=== PATIENT | male | born 1975 | race Caucasian/White ===

== ENCOUNTER 2021-06-11 15:58 | Emergency (ER) | payer OTHER ==
--- OUTSIDE RECORDS SUMMARY | 2021-06-11 16:01 | XMS REPORT | Continuity of Care Document ---
:1975 Author Organization [facility] t Address [address] [place] [address] Care Team Providers Name Role Phone Doctor Unassigned, Name Attending Clinician Unavailable Brandan De Dios MD Attending Clinician Renetta Fowler Attending Clinician Renetta Fowler Admitting Clinician Problems Condition Condition Condition Status Onset Resolution Last Treating Co mments Source Name Details Category Date Date Treatment Clinician Date CHEST PAIN Diagnosis Active 2017-03-22 Memoria 5-21 22:08:00 l CHEST 00:00: Ray PAIN 00 Active 03/13/2017 [facility] Ray Cardiomega Problem Resolve 2017-03-17 Memoria ly d 02:39:09 l (disorder) Thomas n Cardiomega ly (disorder) Resolved Problem 03/17/2017 [facility] Hypertensi Problem Resolve 2017-03-17 Memoria ve d 02:39:09 l disorder, Benedict systemic Hypertensi arterial ve (disorder) disorder, systemic arterial (disorder) Resolved Problem 03/17/2017 [facility] Arthritis Problem Resolve 2017-03-17 M emoria (disorder) d 02:39:09 l Ray Arthritis (disorder) Resolved Problem 03/17/2017 [facility] CHEST Diagnosis Active 2017-03-22 Mem oria PAIN, 22:08:00 l UNSPECIFIE CHEST Nereida nn D PAIN, UNSPECIFIE D Active [facility] Allergies, Adverse Reactions, Alerts This patient has no known allergies or adverse reactions. Social History Social Habit Start Date Stop Date Quantity Comments Source Social History 2017-03-14 2017-03-14 [facility] 02:36:21 02:36:21 Medications Ordered Filled Start Stop Current Ordering Indication Dosage Frequency Signature Comments Components Source Medication Medication Date Date Medication? Clinician (SIG) Name Name Amlodipine No Notes: Memor ia 03-15 (Same as: l 14:00: Norvasc) Benedict GI cocktail No Notes: Nicolas prateek - G.I. l 19:07: Cocktail = antacid with simethicon e 22.5 mL - lidocaine viscous 7.5 mL Saline No Notes: Memoria Flush 0.9% - (Same as: l 14:00: BD Benedict 00 Posiflush) aspirin 81 No Notes: Do Me moria mg tablet, 03-14 not crush l enteric 14:00: or chew. Thomas n coated 00 (Same As: Ecotrin) Norvasc No Notes: Memoria 03-14 (Same as: l 14:00: Norvasc) Ray 00 Amlodipine Yes 10 mg, PO, M emoria - Daily, 0 l 02:30: Refill(s) potassium No Notes: Memori a chloride - (Same as: l 02:08: K-Dur 20) "Do Not Crush" With food and full glass of water Saline No Notes: Memoria Flush 0.9% - (Same as: l 02:01: BD Benedict 00 Posiflush) Nitroglycer No Notes: Nicolas prateek in 03-14 (Same l 02:01: as:Nitroqu ick, Nitrostat) "Do Not Crush" Sublingual tablet Ondansetron No Notes: Nicolas prateek - (Same as: l 02:01: Zofran) MEDICATION WASTE Product Size: 4 mg Product Wasted: ___ mg Morphine No Notes: Memoria 5-22 (Same l 01:45: as:MORPhin Ray 00 e Sulfate) Acetaminoph No Notes: Nicolas prateek en 325 MG / - (Same as: l Hydrocodone 01:44: [place] Nereida nn Bitartrate 00 325/5) Do 5 MG Oral not exceed Tablet 4gm/day of [[place] acetaminop 5/325] hen. Acetaminoph No Notes: Do M emoria en 03-14 not exceed l 01:44: 4 gm/day. Ray 00 (Same as: Tylenol) Vital Signs Vital Name Observation Time Observation Value Comments Source Temperature Oral (F) 2017-03-14 17:10:00 98.6 F [facility] Systolic (mm Hg) 2017-03-14 17:10:00 Nicolas rial Benedict Diastolic (mm Hg) 2017-03-14 17:10:00 Mem orial Benedict Respitory Rate 2017-03-14 17:10:00 Memori al Ray Heart Rate 2017-03-14 17:10:00 [facility] Ray Respitory Rate 2017-03-14 13:43:00 Memori al Ray Systolic (mm Hg) 2017-03-14 13:43:00 Nicolas rial Ray Diastolic (mm Hg) 2017-03-14 13:43:00 Mem orial Benedict Temperature Oral (F) 2017-03-14 13:43:00 98 F [facility] Heart Rate 2017-03-14 13:43:00 [facility] Respitory Rate 2017-03-14 09:20:00 Memori al Rya Heart Rate 2017-03-14 09:20:00 [facility] Ray Systolic (mm Hg) 2017-03-14 09:20:00 Nicolas rial Ray Diastolic (mm Hg) 2017-03-14 09:20:00 Mem orial Benedict Temperature Oral (F) 2017-03-14 09:20:00 97.9 F [facility] BMI Calculated 2017-03-14 02:28:00 Memori al Ray Weight 2017-03-14 02:28:00 [facility] Height 2017-03-14 02:28:00 190.5 cm [facility] Weight 2017-03-14 02:17:00 [facility] BMI Calculated 2017-03-14 02:17:00 Memori al Ray Height 2017-03-14 02:17:00 190.5 cm [facility] Procedures This patient has no known procedures. Encounters Start End Encounter Admission Attending Care Care Encounter Source Date/Time Date/Time Type Type Clinicians Facility Department ID 2021-01-31 2021-01-31 Orders Doctor MARGY [id number] 00:00:00 00:00:00 Only Unassigned, [place] [id number] [place] [facility] [id number] 2021-01-29 2021-01-29 Telephone [facility] [id number] 00:00:00 00:00:00 [facility] [id number] Brandan [place] [id number] Professio [id number] nal [address] 2017-03-14 2017-03-14 [id number] Memoria 01:46:00 20:00:00 n zuri Bell 41 l [facility] 2017-03-13 2017-03-14 Outpatient Ajao, [facility] [address] [id number] 20:46:00 15:00:00 Yanique 41 Renetta Results Test Description Test Time Test Comments Results Result Comments Source CARDIAC ENZYMES 2017-03-14 <0.02 [facility] Ray 17:13:00 HEMATOLOGY 2017-03-14 0.27 [facility] Nereida nn 17:13:00 CARDIAC ENZYMES 2017-03-14 0.6 [facility] 06:58:00 CARDIAC ENZYMES 2017-03-14 1.1 [facility] 06:58:00 CARDIAC ENZYMES 2017-03-14 170 [facility] Ray 06:58:00 CARDIAC ENZYMES 2017-03-14 <0.02 [facility] Ray 06:58:00 CARDIAC ENZYMES 2017-03-14 1.4 [facility] Benedict 02:48:00 CARDIAC ENZYMES 2017-03-14 0.7 [facility] Ray 02:48:00 CARDIAC ENZYMES 2017-03-14 199 [facility] Ray 02:48:00 CARDIAC ENZYMES 2017-03-14 <0.02 [facility] Ray 02:48:00 CHEM PANEL 2017-03-14 94 [facility] Nereida nn 02:48:00 CHEM PANEL 2017-03-14 2.9 [facility] Nereida nn 02:48:00 CHEM PANEL 2017-03-14 1.4 [facility] Nereida nn 02:48:00 CHEM PANEL 2017-03-14 0.99 [facility] Nereida nn 02:48:00 CHEM PANEL 2017-03-14 88 [facility] Nereida nn 02:48:00 CHEM PANEL 2017-03-14 15 [facility] Nereida nn 02:48:00 CHEM PANEL 2017-03-14 81 [facility] Nereida nn 02:48:00 CHEM PANEL 2017-03-14 4.2 [facility] Nereida nn 02:48:00 CHEM PANEL 2017-03-14 87 [facility] Nereida nn 02:48:00 CHEM PANEL 2017-03-14 26 [facility] Nereida nn 02:48:00 CHEM PANEL 2017-03-14 8.7 [facility] Nereida nn 02:48:00 CHEM PANEL 2017-03-14 143 [facility] Nereida nn 02:48:00 CHEM PANEL 2017-03-14 3.7 [facility] Nereida nn 02:48:00 CHEM PANEL 2017-03-14 15 [facility] Nereida nn 02:48:00 CHEM PANEL 2017-03-14 7.1 [facility] Nereida nn 02:48:00 CHEM PANEL 2017-03-14 39 [facility] Nereida nn 02:48:00 CHEM PANEL 2017-03-14 0.6 [facility] Nereida nn 02:48:00 CHEM PANEL 2017-03-14 107 [facility] Nereida nn 02:48:00 CHEM PANEL 2017-03-14 13.7 [facility] Nereida nn 02:48:00
--- NOTE | 2021-06-11 17:03 | RAD REPORT ---
EXAM DESCRIPTION: RAD - Shoulder Left 2 View - 06/11/2021 4:54 pm CLINICAL HISTORY: fall Fall, trauma, pain FINDINGS: Mild AC joint and glenohumeral joint arthritic changes are present. No acute fracture or d islocation.
--- NOTE | 2021-06-11 17:36 | EDPHYS ---
Physician Documentation [facility] Name: Enmanuel Valenzuela Age: 45 yrs Sex: Male : 1975 Arrival Date: 06/11/2021 Time: 16:03 Bed DX2 Private MD: ED Physician Aris Villalta HPI: 06/11 16:19 This 45 yrs old Male presents to ER via Ambulatory with complaints of Fall jmm Injury, Shoulder Injury. 16:19 Details of fall: The patient fell from an upright position, while walking. Onset: The jmm symptoms/episode began/occurred acutely, just prior to arrival. Associated injuries: The patient sustained left shoulder. The patient has experienced similar episodes in the past. 85-year-old male with history of hypothyroidism hypertension hyperlipidemia the presents emerged part with complaints of mainly left shoulder pain. Patient is concerned he may have torn his rotator cuff. Patient states he tripped on his right ankle which is chronically weak landing on his front and bracing himself with the left arm. Patient denies loss of consciousness.. Historical: - Allergies: 16:35 No Known Allergies; kg - Home Meds: 16:35 Synthroid 100 mcg Oral tab 1 tab once daily [Active]; gabapentin 300 mg oral cap 3 kg times per day [Active]; Cymbalta 90 mg oral cpDR 1 cap once daily [Active]; Wellbutrin 150 mg Oral tab daily [Active]; amlodipine 10 mg tab 1 tab [Active]; losartan 50 mg oral tab 1 tab once daily [Active]; metoprolol tartrate 50 mg Oral tab 1 tab 2 times per day [Active]; atorvastatin 40 mg oral tab 1 tab once daily [Active]; aspirin 81 mg Oral chew 1 tab once daily [Active]; - PMHx: 16:35 Hypothyroidism; Hypertensive disorder; Hypercholesterolemia; Depressive disorder; PTSD; kg Chronic joint pain; - PSHx: 16:35 Right shoulder sx; right ankle sx; Left Knee sx; kg - Immunization history:: Adult Immunizations up to date, Client reports receiving the 2nd dose of the Covid vaccine, Date received: December 2020 Client reports receiving the 1st dose of the Covid vaccine, November 2020. - Social history:: Smoking status: Patient denies any tobacco usage or history of. ROS: 16:19 Constitutional: Negative for fever, chills, and weight loss, Cardiovascular: Negative [facility] for chest pain, palpitations, and edema, Respiratory: Negative for shortness of breath, cough, wheezing, and pleuritic chest pain, Abdomen/GI: Negative for abdominal pain, nausea, vomiting, diarrhea, and constipation. 16:19 MS/extremity: Positive for injury or acute deformity. 16:19 All other systems are negative. Exam: 16:19 Constitutional: This is a well developed, well nourished patient who is awake, alert, jmm and in no acute distress. Head/Face: atraumatic. Eyes: EOMI, no conjunctival erythema appreciated ENT: Moist Mucus Membranes Neck: Trachea midline, Supple Chest/axilla: Normal chest wall appearance and motion. Cardiovascular: Regular rate and rhythm. No edema appreciated Respiratory: Normal respirations, no respiratory distress appreciated Abdomen/GI: Non distended, soft Back: Normal ROM Skin: General appearance color normal 16:19 Musculoskeletal/extremity: Left anterior shoulder is mildly tender to palpation, pain is elicited on abduction. Full radial pulses appreciated. No bony tenderness appreciated to the distal radius or ulnar. No snuffbox tenderness appreciated, compartments are soft, neurovascular intact. 16:19 Skin: Appearance: Color: normal in color. 16:19 Neuro: Orientation: is normal, Mentation: is normal, Memory: is normal. 16:19 Psych: Behavior/mood is pleasant, cooperative. Vital Signs: 16:33 BP 141 / 74; Pulse 62; Resp 20; Temp 97.8(TE); Pulse Ox 99% on R/A; Weight 153.31 kg kg (R); Height 6 ft. 3 in. (190.50 cm) (R); Pain 10/10; 16:33 Body Mass Index 42.25 (153.31 kg, 190.50 cm) kg MDM: 16:50 Patient medically screened. [facility] 17:34 Data reviewed: vital signs, nurses notes. Counseling: I had a detailed discussion with homer the patient and/or guardian regarding: the historical points, exam findings, and any diagnostic results supporting the discharge/admit diagnosis, radiology results, the need for outpatient follow up, to return to the emergency department if symptoms worsen or persist or if there are any questions or concerns that arise at home. 06/11 16:19 Order name: Shoulder Left (2 View) XRAY; Complete Time: 17:07 [facility] Administered Medications: 18:40 Drug: Ketorolac 30 mg Route: IM; Site: right deltoid; ss 18:57 Follow up: Response: No adverse reaction ss Disposition: 18:59 Co-signature as Attending Physician, Aris Villalta MD. rn Disposition Summary: 06/11/21 17:34 Discharge Ordered Location: Home [facility] Condition: Stable [facility] Diagnosis - Sprain of shoulder joint [facility] Followup: [facility] - With: Deandre Bo MD - When: 2 - 3 days - Reason: Recheck today's complaints, Continuance of care, Re-evaluation by your physician Discharge Instructions: - Discharge Summary Sheet [facility] - Shoulder Sprain [facility] Forms: - Medication Reconciliation Form [facility] - Thank You Letter [facility] - Antibiotic Education [facility] - Prescription Opioid Use [facility] Prescriptions: - Prednisone 20 mg Oral Tablet - take 3 tablets by ORAL route once daily for 5 days; 15 tablet; Refills: 0, [facility] Product Selection Permitted - orphenadrine citrate 100 mg Oral Tablet Sustained Release - take 1 tablet by ORAL route 2 times per day As needed; 20 tablet; Refills: 0, [facility] Product Selection Permitted Signatures: Dispatcher [employer] Umberto Garnett PA PA jm Aris Villalta MD MD rn Smirch, Shelby, RN RN Sara Paulino RN RN kg
--- NOTE | 2021-06-11 17:36 | ER ---
Nurse's Notes [facility] Name: Enmanuel Valenzuela Age: 45 yrs Sex: Male : 1975 Arrival Date: 06/11/2021 Time: 16:03 Bed DX2 Private MD: Diagnosis: Sprain of shoulder joint Presentation: 06/11 16:33 Chief complaint: Patient states: Pt fell and hit chest, Left hand, wrist pain, left kg shoulder. Pt denies hitting head or LOC. Coronavirus screen: Client denies travel out of the [place] in the last 14 days. At this time, unable to obtain information related to travel outside the [place] At this time, the client does not indicate any symptoms associated with coronavirus-19. Ebola Screen: Patient negative for fever greater than or equal to 101.5 degrees Fahrenheit, and additional compatible Ebola Virus Disease symptoms Patient denies exposure to infectious person. Patient denies travel to an Ebola-affected area in the 21 days before illness onset. Initial Sepsis Screen: Does the patient meet any 2 criteria? No. Patient's initial sepsis screen is negative. Does the patient have a suspected source of infection? No. Patient's initial sepsis screen is negative. Risk Assessment: Do you want to hurt yourself or someone else? Patient reports no desire to harm self or others. Onset of symptoms was June 11, 2021 at 14:20. 16:33 Method Of Arrival: Ambulatory kg 16:33 Acuity: DUONG 4 kg Triage Assessment: 16:35 General: Appears in no apparent distress. Behavior is calm, cooperative, appropriate kg for age, quiet. Pain: Complains of pain in Left hand, left shoulder. Historical: - Allergies: 16:35 No Known Allergies; kg - Home Meds: 16:35 Synthroid 100 mcg Oral tab 1 tab once daily [Active]; gabapentin 300 mg oral cap 3 kg times per day [Active]; Cymbalta 90 mg oral cpDR 1 cap once daily [Active]; Wellbutrin 150 mg Oral tab daily [Active]; amlodipine 10 mg tab 1 tab [Active]; losartan 50 mg oral tab 1 tab once daily [Active]; metoprolol tartrate 50 mg Oral tab 1 tab 2 times per day [Active]; atorvastatin 40 mg oral tab 1 tab once daily [Active]; aspirin 81 mg Oral chew 1 tab once daily [Active]; - PMHx: 16:35 Hypothyroidism; Hypertensive disorder; Hypercholesterolemia; Depressive disorder; PTSD; kg Chronic joint pain; - PSHx: 16:35 Right shoulder sx; right ankle sx; Left Knee sx; kg - Immunization history:: Adult Immunizations up to date, Client reports receiving the 2nd dose of the Covid vaccine, Date received: December 2020 Client reports receiving the 1st dose of the Covid vaccine, November 2020. - Social history:: Smoking status: Patient denies any tobacco usage or history of. Screenin:53 Abuse screen: Denies threats or abuse. Denies injuries from another. Nutritional ss screening: No deficits noted. Tuberculosis screening: Never had TB. Fall Risk None identified. Assessment: 18:53 General: Appears in no apparent distress. Behavior is calm, cooperative. Pain: ss Complains of pain in L shoulder Pain currently is 10 out of 10 on a pain scale. Quality of pain is described as aching, Is continuous. Neuro: Level of Consciousness is awake, alert, obeys commands, Oriented to person, place, time, situation. Cardiovascular: Capillary refill < 3 seconds is brisk in bilateral fingers Patient's skin is warm and dry. Respiratory: Airway is patent Respiratory effort is even, unlabored, Respiratory pattern is regular, symmetrical. GI: No signs and/or symptoms were reported involving the gastrointestinal system. EENT: Oral mucosa is moist. Throat is clear. Derm: Skin is intact, is healthy with good turgor, Skin is dry, Skin is pink, warm \T\ dry. normal. Musculoskeletal: Circulation, motion, and sensation intact. Range of motion: limited in left shoulder Swelling absent. Vital Signs: 16:33 BP 141 / 74; Pulse 62; Resp 20; Temp 97.8(TE); Pulse Ox 99% on R/A; Weight 153.31 kg kg (R); Height 6 ft. 3 in. (190.50 cm) (R); Pain 10/10; 16:33 Body Mass Index 42.25 (153.31 kg, 190.50 cm) kg ED Course: 16:03 Patient arrived in ED. mr 16:18 Umberto Cunha PA is PHCP. m 16:18 Aris Villalta MD is Attending Physician. jmm 16:35 Triage completed. kg 16:54 Shoulder Left (2 View) XRAY In Process Unspecified. EDMS 17:34 Deandre Bo MD is Referral Physician. homer 18:37 Tanja Hugo, RN is Primary Nurse. ss 18:53 Patient has correct armband on for positive identification. Bed in low position. Call ss light in reach. 18:53 No provider procedures requiring assistance completed. Patient did not have IV access ss during this emergency room visit. Administered Medications: 18:40 Drug: Ketorolac 30 mg Route: IM; Site: right deltoid; ss 18:57 Follow up: Response: No adverse reaction ss Outcome: 17:34 Discharge ordered by . [facility] 18:53 Discharged to home ambulatory. ss 18:53 Condition: good 18:53 Discharge instructions given to patient, Instructed on discharge instructions, follow up and referral plans. medication usage, Demonstrated understanding of instructions, follow-up care, medications. 18:57 Patient left the ED. ss Signatures: Dispatcher [employer] EDMS Umberto Cunha PA PA jmm RiveraEda mr Tanja Hugo, RN RN Sara Webber, RICARDO RN kg
[2021-06-11 19:03] VITALS: BP 141/74; TEMP 97.8; O2SAT 99
[2021-06-11] MEDS ORDERED: KETOROLAC 30 MG/ML INJ ONE (19:04)
== END 2021-06-11 18:57 | disposition home or self-care (01) ==
LOC: ER 15:58
DX: S43.402A Unspecified sprain of left shoulder joint, initial encounter (principal); W01.0XXA Fall on same level from slipping, tripping and stumbling without subsequent striking against object, initial encounter; Y93.01 Activity, walking, marching and hiking; I10 Essential (primary) hypertension; E03.9 Hypothyroidism, unspecified; F32.9 Major depressive disorder, single episode, unspecified; Z79.82 Long term (current) use of aspirin
CPT/HCPCS: 96372; 99283